=== PATIENT | male | born 1985 | race Caucasian/White ===

== ENCOUNTER → 2024-06-29 | Day surgery (SDC) | payer BC ==
[~2024-06-29] MED LIST: ACETAMINOPHEN 1000 MG/100 ML IV ONE; BUPIVACAINE 0.25% 30ML SDV ONE; BUPIVACAINE 0.5%/EPI 30 ML SDV INJ ONE; DEXAMETHASONE SOD PHOS INJ 4 MG/ML SDV ONE; FENTANYL CITRATE/PF 100MCG/2 ML INJ ONE; LIDOCAINE HCL 2% LOCAL INJ 5 ML SDV VIAL INJ ONE; MIDAZOLAM HCL 2 MG/2 ML VIAL ONE; ONDANSETRON HCL INJ 2MG/ML 2ML 2 MG/ML VIAL ONE; PROPOFOL IV EMULSION 10 MG/ML 20 ML VIAL ONE; SEVOFLURANE INHAL SOLN 250 ML PEN BTL ONE
[2024-06-29] MEDS: LACTATED RINGER'S 1,000 ML ONE (12:46)
[2024-06-29 15:44] VITALS: BP 131/79; PULSE 71; RESP 17; O2SAT 99
== END | disposition home or self-care (01) ==
LOC: OR 12:25
PROVIDERS: ATTEND Surgery
DX: D17.9 Benign lipomatous neoplasm, unspecified (principal)
CPT/HCPCS: 21554; 88304; J7121; J1100; J2001; J2250; J2405